=== PATIENT | female | born 1985 | race Caucasian/White ===

== ENCOUNTER → 2017-08-04 | Outpatient (REF) | payer SELFPAY ==
[~2017-08-04] MED LIST: AMOXICILLIN PO; FLAG500T PO; LOMOTA PO
[2017-08-04 10:42] LABS: ESTRADIOL 200.3 PG/ML; PROGESTERONE 38.2 NG/ML
== END ==
LOC: M LABDRWAD 09:52
PROVIDERS: ATTEND Obstetrics & Gynecology Reproductive Endocrinology
DX: N97.9 Female infertility, unspecified (principal)

== ENCOUNTER → 2018-07-23 | Outpatient (REF) | payer SELFPAY, BC | LOC: M LAB REF 17:46 | DX: J02.9 Acute pharyngitis, unspecified (principal) | CPT/HCPCS: 87081 ==

== ENCOUNTER → 2019-08-01 | Outpatient (REF) | payer OTHER | LOC: M LAB LCGH 13:52 | PROVIDERS: ATTEND Obstetrics & Gynecology | DX: Z30.2 Encounter for sterilization (principal) ==

== ENCOUNTER 2021-06-10 08:34 | Emergency (ER) | payer OTHER ==
[~2021-06-10] VITALS: Ht 172.7 cm; Wt 64.4 kg
--- OUTSIDE RECORDS SUMMARY | 2021-06-10 08:40 | CCD ---
Author Author [facility] Organization [facility] Address Unknown Phone Unavailable Care Team Providers Care Geotechnical Intern Name Role Phone YAMILETH, Mehdi FIELDS Unavailable Unavailable LETTIERE, Mehdi FIELDS Unavailable Unavailable LETTIERE, Mehdi FIELDS Unavailable Unavailable LETTIERE, Mehdi STEPHENS PA Unavailable Unavailable LETTIERE, Mehdi STEPHENS PA Unavailable Unavailable LETTIERE, Mehdi STEPHENS PA Unavailable Unavailable LETTIERE, Mehdi STEPHENS PA Unavailable Unavailable LETTIERE, Mehdi STEPHENS PA Unavailable Unavailable LETTIERE, Mehdi STEPHENS PA Unavailable Unavailable LETTIERE, Mehdi STEPHENS PA Unavailable Unavailable LETTIERE, Mehdi STEPHENS PA Unavailable Unavailable LETTIERE, Mehdi STEPHENS PA Unavailable Unavailable LETTIERE, Mehdi STEPHENS PA Unavailable Unavailable LETTIERE, Mehdi STEPHENS PA Unavailable Unavailable LETTIERE, Mehdi STEPHENS PA Unavailable Unavailable LETTIERE, Mehdi FIELDS Unavailable Unavailable LETTIERE, Mehdi FIELDS Unavailable Unavailable LETTIERE, Mehdi FIELDS Unavailable Unavailable LETTIERE, A KAT PA Unavailable Unavailable LETTIERE, A KAT PA Unavailable Unavailable LETTIERE, A KAT PA Unavailable Unavailable LETTIERE, A KAT PA Unavailable Unavailable LETTIERE, A KAT PA Unavailable Unavailable LETTIERE, A KAT PA Unavailable Unavailable LETTIERE, A KAT PA Unavailable Unavailable LETTIERE, A KAT PA Unavailable Unavailable LETTIERE, A KAT PA Unavailable Unavailable LETTIERE, A KAT PA Unavailable Unavailable LETTIERE, A KAT PA Unavailable Unavailable LETTIERE, A KAT PA Unavailable Unavailable LETTIERE, A KAT PA Unavailable Unavailable Abriss, B Mamadou MD Unavailable Unavailable Abriss, B Mamadou MD Unavailable Unavailable Abriss, B Mamadou MD Unavailable Unavailable Abriss, B Mamadou MD Unavailable Unavailable Abriss, B Mamadou MD Unavailable Unavailable Abriss, B Mamadou MD Unavailable Unavailable Abriss, B Mamadou MD Unavailable Unavailable Abriss, B Mamadou MD Unavailable Unavailable Abriss, B Mamadou MD Unavailable Unavailable Abriss, B Mamadou MD Unavailable Unavailable Abriss, B Mamadou MD Unavailable Unavailable Abriss, B Mamadou MD Unavailable Unavailable Abriss, B Mamadou MD Unavailable Unavailable Abriss, B Mamadou MD Unavailable Unavailable Abriss, B Mamadou MD Unavailable Unavailable Abriss, B Mamadou MD Unavailable Unavailable Abriss, B Mamadou MD Unavailable Unavailable Abriss, B Mamadou MD Unavailable Unavailable Abriss, B Mamadou MD Unavailable Unavailable Re-disclosure Warning The records that you are about to access may contain information from federally-assisted alcohol or drug abuse programs. If such information is present, then the following federally mandated warning applies: This information has been disclosed to you from records protected by federal confidentiality rules (42 CFR part 2). The federal rules prohibit you from making any further disclosure of this information unless further disclosure is expressly permitted by the written consent of the person to whom it pertains or as otherwise permitted by 42 CFR part 2. A general authorization for the release of medical or other information is NOT sufficient for this purpose. The Federal rules restrict any use of the information to criminally investigate or prosecute any alcohol or drug abuse patient.The records that you are about to access may contain highly sensitive health information, the redisclosure of which is protected by Article 27-F of the [facility] Public Health law. If you continue you may have access to information: Regarding HIV / AIDS; Provided by facilities licensed or operated by the [facility] Office of Mental Health; or Provided by the [facility] Office for People With Developmental Disabilities. If such information is present, then the following [facility] mandated warning applies: This information has been disclosed to you from confidential records which are protected by state law. State law prohibits you from making any further disclosure of this information without the specific written consent of the person to whom it pertains, or as otherwise permitted by law. Any unauthorized further disclosure in violation of state law may result in a fine or retirement sentence or both. A general authorization for the release of medical or other information is NOT sufficient authorization for further disc losure. Allergies and Adverse Reactions Type Description Substance Reaction Status Data Source(s ) Propensity to adverse reactions NO KNOWN ALLERGIES NO KNOWN ALLERGIES [facility] Family History Family Member Name Family Member Gender Family Member Status Date o f Status Description Data Source(s) Unknown Condition [facility] Unknown Male Problem [facility] ([facility], [facility]) Encounters Encounter Providers Location Date Indications Data Source(s ) Outpatient Attender: KAT Navarrete theresa 09/02/2020 02:40:00 PM EST [facility] ([facility]) Outpatient Attender: Mamadou Le/Niels/Taqueria/Carlie indjulee 05/21/2020 09:30:00 AM EDT [facility] Medications Medication Brand Name Start Date Product Form Dose Route Admi nistrative Instructions Pharmacy Instructions Status Indications Reaction Description Data Source(s) No Active Medications 09/02/2020 12:00:00 AM EST active [facility] ([facility], [facility]) Fluticasone Propionate Fluticasone Propionate 03/17/2020 12:00:00 AM E DT completed [facility] ([facility], [facility]) Loratadine 10 MG Oral Tablet Loratadine 03/17/2020 12:00:00 AM EDT ORAL completed [facility] ([facility]) Insurance Providers Payer name Policy type / Coverage type Policy ID Covered alliance party ID Covered alliance party's relationship to dougherty Policy Dougherty Plan Information [facility] P [id number] S [id number] Managed Care - [facility] P [id number] S [id number] [facility] I [id number] Self [id number] Medicaid S [id number] S [id number] [facility] Commercial [id number] Self [id number] [facility] S [id number] S [id number] Self Pay P UNAVAILABLE S UNAVAILA BLE UNAVAILABLE UNAVAILA BLE MEDICAID GME [id number] S [id number] [facility] HEA [id number] S [id number] [facility] HEA [id number] S [id number] [employer] Commercial [id number] Self [id number] SELF PAY UNAVAILABLE SP UNAVAILA BLE [place] [id number] [address] [id number] [facility] [id number] FA2 [id number] [facility] [id number] SP [id number] [employer] [place] 306/806 [id number] MO2 [id number] [facility] [id number] SP [id number] SELF PAY ONLY SP BCBS [place] PPO 302/307 [id number] SP [id number] Problems, Conditions, and Diagnoses No Information Surgeries/Procedures No Information Results ID Date Data Source [id number] 05/25/2021 12:00:00 AM EDT [facility] Name Value Range Interpretation Code Description Data Marcella rce(s) Supporting Document(s) SARS-CoV2 Rapid Antigen Positive [facility] This lab was ordered by [facility] and reported by [facility]. Procedure Social History No Information Vital Signs ID Date Data Source UNK Name Value Range Interpretation Code Description Data Source(s) Systolic blood pressure 100 mm[Hg] 100 mm[Hg] M EDENT ([facility], [facility]) Diastolic blood pressure 69 mm[Hg] 69 mm[Hg] [facility], [facility]) Heart rate 76 /min 76 /min [facility] ([facility], [facility]) Respiratory rate 20 /min 20 /min [facility] ( [facility], [facility]) Oxygen saturation in Arterial blood by Pulse oximetry 98 % 98 % [facility] ([facility], [facility]) Body temperature 98.4 [degF] 98.4 [degF] MEDENT ([facility], [facility]) Body weight 142.00 [lb_av] 142.00 [lb_av] MEDEN T ([facility], [facility]) Body height 67 [in_i] 67 [in_i] MEDENT ([facility], [facility]) 5'7" Body mass index (BMI) [Ratio] 22.2 kg/m2 22.2 k g/m2 MED[facility] ([facility], [facility]) Body height 68 [in_i] 68 [in_i] MEDENT ([facility]) 5'8" Body weight 135.00 [lb_av] 135.00 [lb_av] MEDEN T ([facility]) Body mass index (BMI) [Ratio] 20.5 kg/m2 20.5 k g/m2 MEDENT ([facility]) [place] body weight 140 [lb_av] 140 [lb_av] MEDEN T ([facility]) Body weight 61.236 kg 61.236 kg MEDENT ([facility]) Body height 68 [in_i] 68 [in_i] MEDENT ([facility]) 5'8" Body weight 135.00 [lb_av] 135.00 [lb_av] MEDEN T ([facility]) Body mass index (BMI) [Ratio] 20.5 kg/m2 20.5 k g/m2 MED[facility] ([facility]) [place] body weight 140 [lb_av] 140 [lb_av] MEDEN T ([facility]) Body weight 61.236 kg 61.236 kg MED[facility] ([facility])
--- NOTE | 2021-06-10 09:23 | REP ---
INDICATION: CHEST PAIN COMPARISON: None. TECHNIQUE: Portable AP view of the chest FINDINGS: The mediastinum and cardiac silhouette are within normal limits for portable technique. The lung maya are clear without acute consolidation, effusion, or pneumothorax. Skeletal structures are intact. IMPRESSION: No acute cardiopulmonary process appreciated. <Electronically signed by Edis Gong > 06/10/21 0919
[2021-06-10 09:31] LABS: BASO % 0.5 % (0.0-1.0); EOS # 0.1 10^3/uL (0.0-0.5); EOS % 1.5 % (0.0-3.0); HEMATOCRIT 40.2 % (36.0-47.0); LYMPH % 26.6 % (24.0-44.0); MEAN CORPUSCULAR HEMOGLOBIN 28.1 pg (27.0-33.0); MEAN CORPUSCULAR HGB CONC 32.3 g/dl (32.0-36.5); MONO # 0.6 10^3/uL (0.0-0.8); MONO % 8.3 % (2.0-8.0); NEUTROPHILS # 4.7 10^3/uL (1.5-8.5); NEUTROPHILS % 62.8 % (36.0-66.0); PLATELET COUNT, AUTOMATED 488 10^3/uL (150-450); RED BLOOD COUNT 4.62 10^6/uL (4.00-5.40); WHITE BLOOD COUNT 7.5 10^3/uL (4.0-10.0)
[2021-06-10] MEDS ORDERED: NS 1,000 ML IV ONE (09:35)
--- OUTSIDE RECORDS SUMMARY | 2021-06-10 09:37 | CCD ---
Author Author [facility] Organization [facility] Address Unknown Phone Unavailable Care Team Providers Care Assembler Billiard Table Name Role Phone YAMILETH, Mehdi FIELDS Unavailable [...] LETTIERE, Mehdi FIELDS Unavailable Unavailable LETTIERE, Mehdi FEILDS Unavailable Unavailable LETTIERE, A KAT PA Unavailable [...] is protected by Article 27-F of the [facility] Public Health law. If you continue you may have access to information: Regarding HIV / AIDS; Provided by facilities licensed or operated by the [facility] Office of Mental Health; or Provided by the [facility] Office for People With Developmental Disabilities. If such information is present, then the following [facility] mandated warning applies: This information has been [...] law may result in a fine or senior living sentence or both. A general authorization for the release of medical or other information is NOT sufficient authorization for further disc losure. Allergies and Adverse Reactions Type Description Substance Reaction Status Data Source(s ) Propensity to adverse reactions NO KNOWN ALLERGIES NO KNOWN ALLERGIES [facility] Family History Family Member Name Family Member Gender Family Member Status Date o f Status Description Data Source(s) Unknown Condition [facility] Unknown Condition [facility] Unknown Condition [facility] Unknown Condition [facility] Unknown Condition [facility] Unknown Male Problem [facility] ([facility], [facility]) Encounters Encounter Providers Location Date Indications Data Source(s ) Outpatient Attender: KAT Navarrete theresa 09/02/2020 02:40:00 PM EST [facility] ([facility], [facility]) Outpatient Attender: Mamadou Le/Niels/Taqueria/Carlie indjulee 05/21/2020 09:30:00 AM EDT [facility] Medications Medication Brand Name Start Date Product Form Dose Route Admi nistrative Instructions Pharmacy Instructions Status Indications Reaction Description Data Source(s) No Active Medications 09/02/2020 12:00:00 AM EST active [facility] ([facility], [facility]) Fluticasone Propionate Fluticasone Propionate 03/17/2020 12:00:00 AM E DT completed [facility] ([facility], [facility]) Loratadine 10 MG Oral Tablet Loratadine 03/17/2020 12:00:00 AM EDT ORAL completed [facility] ([facility], [facility]) Insurance Providers Payer name Policy type / Coverage type Policy ID Covered alliance party ID Covered alliance party's relationship to dougherty Policy Dougherty Plan Information [facility] P [id number] S [id number] Managed Care - [facility] P [id number] S [id number] [facility] I [id number] Self [id number] Medicaid S [id number] S [id number] [facility] Commercial [id number] Self [id number] [facility] S [id number] S [id number] Self Pay P UNAVAILABLE S UNAVAILA BLE UNAVAILABLE UNAVAILA BLE MEDICAID GME [id number] S [id number] [facility] HEA [id number] S [id number] [facility] HEA [id number] S [id number] [employer] Commercial [id number] Self [id number] SELF PAY UNAVAILABLE SP UNAVAILA BLE WELLNESS CONNECTION [id number] SP [id number] [facility] [id number] FA2 [id number] [facility] [id number] SP [id number] [employer] 306/806 [id number] MO2 [id number] [facility] CARE [id number] SP [id number] SELF PAY ONLY SP BCBS [place] PPO 302/307 [id number] SP [id number] Problems, Conditions, and Diagnoses No Information Surgeries/Procedures No Information Results ID Date Data Source [id number] 05/25/2021 12:00:00 AM EDT [facility] Name Value Range Interpretation Code Description Data Marcella rce(s) Supporting Document(s) SARS-CoV2 Rapid Antigen Positive [facility] This lab was ordered by [facility] and reported by [facility]. Procedure Social History No Information Vital Signs ID Date Data Source UNK Name Value Range Interpretation Code Description Data Source(s) Systolic blood pressure 100 mm[Hg] 100 mm[Hg] M [facility]ENT ([facility], [facility]) Diastolic blood pressure 69 mm[Hg] 69 mm[Hg] [facility], [facility]) Heart rate 76 /min 76 /min [facility], [facility]) Respiratory rate 20 /min 20 /min [facility] ( [facility], [facility]) Oxygen saturation in Arterial blood by Pulse oximetry 98 % 98 % [facility] ([facility], [facility]) Body temperature 98.4 [degF] 98.4 [degF] [facility] ([facility], [facility]) Body weight 142.00 [lb_av] 142.00 [lb_av] MEDEN T ([facility], [facility]) Body height 67 [in_i] 67 [in_i] [facility] ([facility], [facility]) 5'7" Body mass index (BMI) [Ratio] 22.2 kg/m2 22.2 k g/m2 [facility] ([facility], [facility]) Body height 68 [in_i] 68 [in_i] [facility] ([facility]) 5'8" Body weight 135.00 [lb_av] 135.00 [lb_av] MEDEN T ([facility]) Body mass index (BMI) [Ratio] 20.5 kg/m2 20.5 k g/m2 MED[facility] ([facility]) [place] body weight 140 [lb_av] 140 [lb_av] MEDEN T ([facility]) Body weight 61.236 kg 61.236 kg [facility] ([facility]) Body height 68 [in_i] 68 [in_i] MED[facility] ([facility]) 5'8" Body weight 135.00 [lb_av] 135.00 [lb_av] MEDEN T ([facility]) Body mass index (BMI) [Ratio] 20.5 kg/m2 20.5 k g/m2 MEDENT ([facility]) [place] body weight 140 [lb_av] 140 [lb_av] MEDEN T ([facility]) Body weight 61.236 kg 61.236 kg MEDENT ([facility])
[2021-06-10 09:51] LABS: HCG, SERUM QUALITATIVE NEGATIVE (NEGATIVE)
[2021-06-10 10:03] LABS: ALBUMIN 3.8 GM/DL (3.2-5.2); ALT/SGPT 21 U/L (12-78); BILIRUBIN,DIRECT 0.1 MG/DL (0.0-0.2); BILIRUBIN,TOTAL 0.4 MG/DL (0.2-1.0); BLOOD UREA NITROGEN 18 MG/DL (7-18); CALCIUM LEVEL 9.2 MG/DL (8.5-10.1); CARBON DIOXIDE LEVEL 31 MEQ/L (21-32); CHLORIDE LEVEL 106 MEQ/L (98-107); CK-MB VALUE MASS 1.3 NG/ML (<3.6); CPK CREATINE PHOSPHOKINASE 86 U/L (26-192); CREATININE FOR GFR 0.87 MG/DL (0.55-1.30); FREE T4 0.95 NG/DL (0.76-1.46); GLOMERULAR FILTRATION RATE > 60.0 (>60); GLUCOSE, FASTING 70 MG/DL (70-100); MAGNESIUM LEVEL 1.9 MG/DL (1.8-2.4); MB/CK RELATIVE INDEX 1.51 (< OR =4); PHOSPHORUS LEVEL 2.9 MG/DL (2.5-4.9); POTASSIUM SERUM 4.1 MEQ/L (3.5-5.1); SODIUM LEVEL 140 MEQ/L (136-145); TOTAL PROTEIN 7.4 GM/DL (6.4-8.2); TROPONIN I < 0.02 NG/ML (< 0.10)
[2021-06-10] MEDS ORDERED: ISOVUE-370 76% 100ML VIAL As Ordered ONE (10:10)
--- NOTE | 2021-06-10 10:48 | REP ---
INDICATION: chest pain COMPARISON: None. TECHNIQUE: Axial contrast enhanced images from the thoracic inlet to the upper abdomen using pulmonary embolus technique with multiplanar re-formations. 75 ml Isovue 370 intravenous contrast material administered without complication. This CT examination was performed using the following dose reduction techniques: Automated exposure control, adjustment of mA and/or kv according to the patient's size, and use of iterative reconstruction technique. FINDINGS: Satisfactory enhancement of the pulmonary vasculature is achieved and no filling defects are identified to suggest pulmonary embolus. Further evaluation of the mediastinum demonstrates normal thoracic aorta, heart and pericardium. Small areas of patchy opacity/airspace disease in the periphery of the bilateral lower lobes consistent with early pneumonia. COVID-19 pulmonary disease cannot be excluded and should be correlated. Tracheobronchial tree is patent. No nodule or mass lesion is identified. No adenopathy noted. Surrounding musculoskeletal structures intact IMPRESSION: No evidence for pulmonary embolus. Small patchy opacities in the lower lobes. Differential diagnosis includes early multifocal pneumonia and COVID-19 pulmonary disease. <Electronically signed by Edis Gong > 06/10/21 [id number]
[2021-06-10 13:15] VITALS: BP 108/69
--- NOTE | 2021-06-10 13:41 | ECGEPIP ---
[facility] - ED Test Date: 2021-06-10 Pat Name: ANALY JACK Department: Room: - Gender: Female Sap Grc Security: JIrving : 1985 Requested By: IGNACIO De La Vega Order Number: [id number] Reading MD: Analy Kay Measurements Intervals [place] Rate: 67 P: 72 DC: 154 QRS: 99 QRSD: 82 T: 75 QT: 396 QTc: 418 Interpretive Statements Normal sinus rhythm Rightward axis No prior Electronically Signed on 06-10-2021 13:41:44 EDT by Anlay Kay
== END 2021-06-10 13:25 | disposition home or self-care (01) ==
LOC: M ED 08:34
DX: R00.2 Palpitations (principal); R07.9 Chest pain, unspecified; Z86.16 Personal history of COVID-19
CPT/HCPCS: 71045; 71275; 80048; 80076; 82550; 82553; 83735; 84100; 84439; 84443; 84484; 84703; 85025; 93005; 93041; 94760; 96360; 96361; 99285; Q9967

== ENCOUNTER → 2021-07-24 | Outpatient (CLI) | payer OTHER ==
[2021-07-24 09:03] LABS: HEMATOCRIT 41.1 % (36.0-47.0); HEMOGLOBIN 13.4 g/dl (12.0-15.5); MEAN CORPUSCULAR HEMOGLOBIN 28.7 pg (27.0-33.0); MEAN CORPUSCULAR HGB CONC 32.6 g/dl (32.0-36.5); PLATELET COUNT, AUTOMATED 423 10^3/uL (150-450); RED BLOOD COUNT 4.67 10^6/uL (4.00-5.40); WHITE BLOOD COUNT 10.5 10^3/uL (4.0-10.0)
[2021-07-24 09:31] LABS: CHOLESTEROL RISK RATIO 3.396 (<5)
== END ==
LOC: M PLALAB 08:02
PROVIDERS: ATTEND Student in an Organized Health Care Education/Training Program
DX: R89.9 Unspecified abnormal finding in specimens from other organs, systems and tissues (principal); R00.2 Palpitations

== ENCOUNTER → 2022-07-20 | Outpatient (REF) | payer OTHER | LOC: M SFHCWAGY 17:29 | PROVIDERS: ATTEND Advanced Practice Midwife | DX: Z12.4 Encounter for screening for malignant neoplasm of cervix (principal) | CPT/HCPCS: 87624; G0123 ==

== ENCOUNTER → 2022-11-11 | Outpatient (CLI) | payer OTHER ==
[2022-11-11 11:01] LABS: BASO # 0.1 10^3/uL (0.0-0.2); BASO % 0.6 % (0.0-1.0); EOS # 0.1 10^3/uL (0.0-0.5); EOS % 0.7 % (0.0-3.0); HEMATOCRIT 42.9 % (36.0-47.0); HEMOGLOBIN 13.9 g/dl (12.0-15.5); LYMPH # 2.4 10^3/uL (1.5-5.0); LYMPH % 16.2 % (24.0-44.0); MEAN CORPUSCULAR HEMOGLOBIN 28.4 pg (27.0-33.0); MEAN CORPUSCULAR HGB CONC 32.4 g/dl (32.0-36.5); MEAN CORPUSCULAR VOLUME 87.6 fl (80.0-96.0); MONO # 1.2 10^3/uL (0.0-0.8); MONO % 8.4 % (2.0-8.0); NEUTROPHILS % 73.8 % (36.0-66.0); PLATELET COUNT, AUTOMATED 407 10^3/uL (150-450); WHITE BLOOD COUNT 14.9 10^3/uL (4.0-10.0)
[2022-11-11 11:34] LABS: ALBUMIN 3.8 G/DL (3.2-5.2); ALKALINE PHOSPHATASE 68 U/L (46-116); ALT/SGPT 15 U/L (7.0-40); AST/SGOT 14 U/L (<34); BILIRUBIN,TOTAL 0.6 MG/DL (0.3-1.2); BLOOD UREA NITROGEN 16 MG/DL (9-23); CALCIUM LEVEL 9.4 MG/DL (8.5-10.1); CARBON DIOXIDE LEVEL 28 MMOL/L (20-31); CHLORIDE LEVEL 102 MMOL/L (98-107); CHOLESTEROL LEVEL 209 MG/DL (<200); CHOLESTEROL RISK RATIO 3.14 (<5); CREATININE FOR GFR 0.81 MG/DL (0.55-1.30); GLOMERULAR FILTRATION RATE > 60.0 (>60); GLUCOSE, FASTING 84 MG/DL (60-100); HDL CHOLESTEROL 66.4 MG/DL (>40); LDL CHOLESTEROL 128.6 MG/DL (<100); NON-HDL-C 142.6 MG/DL; POTASSIUM SERUM 4.9 MMOL/L (3.5-5.1); SODIUM LEVEL 135 MMOL/L (136-145); TOTAL PROTEIN 6.7 G/DL (5.7-8.2); TRIGLYCERIDES LEVEL 70 MG/DL (<150)
[2022-11-11 12:03] LABS: HIV 1&2 SCREEN CENTAUR NEGATIVE (NEGATIVE)
[2022-11-11 12:27] LABS: GC DNA AMPLIFICATION NEGATIVE (NEGATIVE)
== END ==
LOC: M PLALAB 08:35
PROVIDERS: ATTEND Student in an Organized Health Care Education/Training Program
DX: Z00.00 Encounter for general adult medical examination without abnormal findings (principal)

== ENCOUNTER → 2023-07-28 | Outpatient (REF) | payer OTHER | LOC: M PLALAB 16:11 | PROVIDERS: ATTEND Advanced Practice Midwife | DX: Z12.4 Encounter for screening for malignant neoplasm of cervix (principal) | CPT/HCPCS: 87624; G0123 ==

== ENCOUNTER → 2024-06-28 | Outpatient (CLI) | payer OTHER ==
[2024-06-28 19:13] LABS: BASO # 0.1 10^3/uL (0.0-0.2); BASO % 0.5 % (0.0-1.0); EOS # 0.2 10^3/uL (0.0-0.5); EOS % 1.2 % (0.0-3.0); HEMATOCRIT 39.4 % (36.0-47.0); HEMOGLOBIN 12.6 g/dl (12.0-15.5); LYMPH # 3.7 10^3/uL (1.5-5.0); LYMPH % 24.2 % (24.0-44.0); MEAN CORPUSCULAR HEMOGLOBIN 27.7 pg (27.0-33.0); MEAN CORPUSCULAR VOLUME 86.6 fl (80.0-96.0); MONO # 1.2 10^3/uL (0.0-0.8); MONO % 8.1 % (2.0-8.0); NEUTROPHILS % 65.7 % (36.0-66.0); PLATELET COUNT, AUTOMATED 497 10^3/uL (150-450); RED BLOOD COUNT 4.55 10^6/uL (4.00-5.40); WHITE BLOOD COUNT 15.2 10^3/uL (4.0-10.0)
[2024-06-28 19:19] LABS: ALBUMIN 3.5 G/DL (3.2-5.2); ALKALINE PHOSPHATASE 71 U/L (35-104); ALT/SGPT 18 U/L (7.0-40); AST/SGOT < 8 U/L (<34); BILIRUBIN,TOTAL 0.2 MG/DL (0.3-1.2); BLOOD UREA NITROGEN 17 MG/DL (9-23); CALCIUM LEVEL 9.6 MG/DL (8.5-10.1); CARBON DIOXIDE LEVEL 29 MMOL/L (20-31); CHLORIDE LEVEL 105 MMOL/L (98-107); CHOLESTEROL LEVEL 212 MG/DL (<200); CHOLESTEROL RISK RATIO 3.58 (<5); CREATININE FOR GFR 0.94 MG/DL (0.55-1.30); GLOMERULAR FILTRATION RATE > 60.0 (>60); GLUCOSE, FASTING 83 MG/DL (60-100); HDL CHOLESTEROL 59.2 MG/DL (>40); LDL CHOLESTEROL 118.4 MG/DL (<100); NON-HDL-C 152.8 MG/DL; POTASSIUM SERUM 3.9 MMOL/L (3.5-5.1); SODIUM LEVEL 138 MMOL/L (136-145); TOTAL PROTEIN 7.1 G/DL (5.7-8.2); TRIGLYCERIDES LEVEL 172 MG/DL (<150)
[2024-06-28 20:26] LABS: HEMOGLOBIN A1c 5.5 % (4.0-6.0)
== END ==
LOC: M PLALAB 15:27
DX: Z00.00 Encounter for general adult medical examination without abnormal findings (principal); E78.00 Pure hypercholesterolemia, unspecified